=== PATIENT | female | born 1985 | race African-American/Black ===

== ENCOUNTER 2017-01-29 01:09 | Emergency (ER) | payer OTHER ==
[~2017-01-29] VITALS: Ht 152.4 cm; Wt 50.8 kg
[2017-01-29] MEDS ORDERED: MOBIC15 MG PO (01:32)
[2017-01-29] MEDS ORDERED: NORCO 5-325 TA1 EACH PO (02:49)
[2017-01-29 03:06] VITALS: BP 110/57
== END 2017-01-29 03:08 | disposition home or self-care (01) ==
LOC: ER 01:09
DX: R10.33 Periumbilical pain (principal); J45.909 Unspecified asthma, uncomplicated; Z98.890 Other specified postprocedural states; F10.99 Alcohol use, unspecified with unspecified alcohol-induced disorder; Z88.0 Allergy status to penicillin; Z88.2 Allergy status to sulfonamides